=== PATIENT | female | born 1970 | race Caucasian/White ===

== ENCOUNTER 2016-12-14 03:24 | Emergency (ER) | payer OTHER ==
[~2016-12-14] VITALS: Ht 160 cm; Wt 59.5 kg
[~2016-12-14 03:24] MED LIST: OMEP20CA16 PO
[2016-12-14 03:35] VITALS: Ht 160 cm; Wt 59.5 kg
[2016-12-14] MEDS ORDERED: ONDANSETRON 4 MG INJ IV STA (04:32)
[2016-12-14] MEDS ORDERED: SOD CHLORIDE 0.9% 1,000 ML IV STA (04:32)
[2016-12-14] MEDS ORDERED: morphine 4 MG/ML VIAL IV STA (04:32)
[2016-12-14 05:37] LABS: ADD UMIC YES; URINE BILIRUBIN (Dip) NEGATIVE (NEGATIVE); URINE BLOOD (Dip) 3+ (NEGATIVE); URINE COLOR YELLOW (YELLOW); URINE GLUCOSE (Dip) NEGATIVE (NEGATIVE); URINE KETONES (Dip) NEGATIVE (NEGATIVE); URINE LEUKOCYTE ESTERASE (Dip) NEGATIVE (NEGATIVE); URINE NITRITE (Dip) NEGATIVE (NEGATIVE); URINE TOTAL PROTEIN (Dip) NEGATIVE (NEGATIVE); URINE UROBILINOGEN (Dip) 0.2 E.U./dL (0.1-1.0)
[2016-12-14 05:50] LABS: BASOPHILS % 0.3 % (0.0-2.0); EOSINOPHILS % 0.5 % (0.0-7.0); HEMATOCRIT 44.8 % (37.0-47.0); LYMPHOCYTES # 1.5 10^3/ul (0.8-2.9); LYMPHOCYTES % 20.4 % (15.0-51.0); MEAN CORPUSCULAR HEMOGLOBIN 30.2 pg (29.0-33.0); MEAN CORPUSCULAR HGB CONC 33.5 g/dl (32.0-37.0); MEAN CORPUSCULAR VOLUME 90.3 fl (82.0-101.0); MEAN PLATELET VOLUME 10.4 fl (7.4-10.4); MONOCYTE # 0.5 10^3/ul (0.3-0.9); MONOCYTES % 6.7 % (0.0-11.0); NEUTROPHIL # 5.2 10^3/ul (1.6-7.5); NEUTROPHILS % 72.1 % (39.0-77.0); PLATELET COUNT 171 10^3/UL (140-440); RED BLOOD COUNT 4.96 10^6/ul (4.20-5.40); RED CELL DISTRIBUTION WIDTH 14.5 % (11.5-14.5); UNCORRECTED WBC 7.2 10^3/ul (4.8-10.8); WHITE BLOOD COUNT 7.2 10^3/ul (4.8-10.8)
--- NOTE | 2016-12-14 05:51 | RADRPT ---
PROCEDURE: XR Abdomen. CLINICAL INDICATION: Abdominal pain. TECHNIQUE: 3 frontal views of the abdomen. COMPARISON: None. FINDINGS: The bowel gas pattern is unremarkable. Cholecystectomy clips are present. There is no bowel obstruct ion or free air. There is no organomegaly. There is no abnormal calcification. The osseous struct ures are unremarkable. IMPRESSION: Unremarkable bowel gas pattern. Status post cholecystectomy. .Robbi Wright MD, MD Date Time Electronically viewed and signed by .Robbi Wright MD, on 12/14/2016 05:51 .T/
[2016-12-14 05:53] LABS: BILIRUBIN,INDIRECT 0.3 mg/dl (0-1.1); BILIRUBIN,TOTAL 0.3 mg/dl (0.2-1.3); CREATININE 0.72 mg/dl (0.44-1.00); TOTAL PROTEIN 7.9 g/dl (6.1-8.1)
[2016-12-14 05:54] LABS: CALCIUM 9.1 mg/dl (8.4-10.2)
[2016-12-14 05:55] LABS: CONDITION 1
[2016-12-14 06:05] LABS: SQUAMOUS EPITHELIAL CELL,UR FEW
[2016-12-14 06:10] LABS: ALBUMIN 4.6 g/dl (3.3-4.9); POTASSIUM 3.5 mmol/L (3.5-5.1)
[2016-12-14 06:13] LABS: ALBUMIN/GLOBULIN RATIO 1.24
--- NOTE | 2016-12-14 06:25 | ERD ---
ER Documentation Chief Complaint Date/Time DATE: 12/14/16 TIME: 06:22 Chief Complaint diffuse abd pain x 2 days, diarrhea x 5 days HPI This 46-year-old female presents emergency room with 2 days of crampy abdominal pain after 5 days of diarrhea. Patient is also had nausea and has not been wanting to eat or drink for 2 days. She denies any fevers or chills. Diarrhea is copious and watery. ROS All systems reviewed and are negative except as per history of present illness. Medications Home Meds Reported Medications Omeprazole* (Omeprazole*) 20 Mg Capsule.dr, 20 MG PO DAILY, #30 CAP 08/22/16 Allergies Allergies: Coded Allergies: Penicillins (Verified Allergy, Severe, THROAT SWELLS UP, 09/10/16) nitrofurantoin (Verified Allergy, Severe, SWELLING TONGUE AND HANDS, ) PMhx/Soc History of Surgery: Yes (LAP CHOLEY, HYST, BLADDER SUSPENSION, BUTT IMPLANT) Anesthesia Reaction: Yes (N/V) Hx Neurological Disorder: No Hx Respiratory Disorders: No Hx Cardiac Disorders: No (BORDERLINE HTN, NO MEDS) Hx Psychiatric Problems: No Hx Miscellaneous Medical Probl: No Hx Alcohol Use: No Hx Substance Use: No Hx Tobacco Use: No Physical Exam Vitals Vital Signs Date Time Temp Pulse Resp B/P Pulse Ox O2 Delivery O2 Flow Rate FiO2 12/14/16 03:35 98.9 97 20 115/55 100 Physical Exam Const: [] No distress Head: Atraumatic Eyes: Normal Conjunctiva ENT: Normal External Ears, Nose and Mouth. Neck: Full range of motion..~ No meningismus. Resp: Clear to auscultation bilaterally Cardio: Regular rate and rhythm, no murmurs Abd: Soft, mild upper abdominal pain and left upper quadrant right upper quadrant epigastric area and mid abdomen without guarding or rebound, non distended. Normal bowel sounds Skin: No petechiae or rashes Back: No midline or flank tenderness Ext: No cyanosis, or edema Neur: Awake and alert and oriented 3, no focal deficits Psych: Normal Mood and Affect Result Diagram: 12/14/165 12/14/16444 Results 24 hrs Laboratory Tests Test 12/14/16 04:45 Alanine Aminotransferase (ALT/SGPT) 31IU/L Albumin Pending Albumin/Globulin Ratio Pending Alkaline Phosphatase 60IU/L Anion Gap Pending Aspartate Amino Transf (AST/SGOT) 32IU/L Basophils # 0.010^3/ul Basophils % 0.3% Blood Morphology Comment Blood Urea Nitrogen 16mg/dl Calcium Level 9.1mg/dl Carbon Dioxide Level 26mmol/L Chloride Level Pending Creatinine 0.72mg/dl Direct Bilirubin 0.00mg/dl Eosinophils # 0.010^3/ul Eosinophils % 0.5% Globulin Pending Glucose Level 95mg/dl Hematocrit 44.8% Hemoglobin 15.0g/dl Indirect Bilirubin 0.3mg/dl Lipase 89U/L Lymphocytes # 1.510^3/ul Lymphocytes % 20.4% Mean Corpuscular Hemoglobin 30.2pg Mean Corpuscular Hemoglobin Concent 33.5g/dl Mean Corpuscular Volume 90.3fl Mean Platelet Volume 10.4fl Monocytes # 0.510^3/ul Monocytes % 6.7% Neutrophils # 5.210^3/ul Neutrophils % 72.1% Nucleated Red Blood Cells # 0.010^3/ul Nucleated Red Blood Cells % 0.0/100WBC Platelet Count 93769^3/UL Potassium Level Pending Red Blood Count 4.9610^6/ul Red Cell Distribution Width 14.5% Sodium Level Pending Total Bilirubin 0.3mg/dl Total Protein 7.9g/dl Urine Bilirubin NEGATIVE Urine Calcium Oxalate Crystals MANY Urine Clarity CLEAR Urine Color YELLOW Urine Glucose NEGATIVE% Urine Hemoglobin 3+ Urine Ketones NEGATIVE Urine Leukocyte Esterase NEGATIVE Urine Microscopic RBC 10-25/HPF Urine Microscopic WBC 0-2/HPF Urine Nitrite NEGATIVE Urine Specific [place] 1.025 Urine Squamous Epithelial Cells FEW Urine Total Protein NEGATIVE Urine Urobilinogen 0.2 E.U./dL Urine Yeast FEW Urine pH 6.0 White Blood Count 7.210^3/ul Current Medications Medications (Trade) Dose Ordered Sig/Juarez Route PRN Reason Start Time Stop Time Status Last Admin Dose Admin Sodium Chloride (NS) 1,000 ml @ 1,000 mls/hr Q1H STAT IV 12/14/16 04:32 12/14/16 05:31 DC 12/14/16 04:49 Morphine Sulfate (morphine) 4 mg ONCE STAT IV 12/14/16 04:32 12/14/16 04:34 DC 12/14/16 04:49 Ondansetron HCl (Zofran Inj) 4 mg ONCE STAT IV 12/14/16 04:32 12/14/16 04:34 DC 12/14/16 04:49 Procedures/MDM Likely viral gastroenteritis. Patient is stable vital signs. She was hydrated with normal saline given morphine as well as Zofran. [place] much better in the emergency room was able to take by mouth. Discharging her with Lomotil, naproxen , few [place] for pain and Zofran ODT. No signs of kidney dysfunction from dehydration. Primary care follow-up in next 2-3 days and return precautions given. Also explained to her foods to avoid after viral illness of the intestines. Two-view abdominal x-ray interpretation: No acute process. I see no air-fluid level isn't getting obstruction, no free air, no abnormal masses, no fractures Departure Diagnosis: Primary Impression: Gastroenteritis Condition: Stable MOHITLUCIJANET DO Dec 14, 2016 06:25
[2016-12-14] MEDS ORDERED: ONDA4TAB14 PO (06:26)
[2016-12-14] MEDS ORDERED: NAPR-688 PO (06:27)
[2016-12-14] MEDS ORDERED: UDLOM GTB (06:27)
[2016-12-14] MEDS ORDERED: HYDR-906 PO (06:27)
[2016-12-14 06:40] VITALS: BP 110/68; PULSE 82; RESP 20; TEMP 98.6
== END 2016-12-14 06:40 | disposition home or self-care (01) ==
LOC: E/R 03:24
DX: K52.9 Noninfective gastroenteritis and colitis, unspecified (principal); R11.0 Nausea
CPT/HCPCS: 36415; 74010; 80053; 81001; 83690; 85025; 96374; 96375; J2270; J2405; J7030; Z7502; 81003

== ENCOUNTER 2017-07-13 06:05 | Emergency (ER) | payer OTHER ==
[~2017-07-13] VITALS: Ht 162.6 cm; Wt 64.0 kg
[~2017-07-13 06:05] MED LIST changes: +HYDR-906 PO; +NAPR-688 PO; +ONDA4TAB14 PO; +UDLOM GTB
[2017-07-13 06:07] VITALS: Ht 162.6 cm; Wt 64.0 kg
[2017-07-13] MEDS ORDERED: DIPHENHYDRAMINE 25 MG CAP PO ONE (07:00)
[2017-07-13 07:20] LABS: BASOPHILS % 0.6 % (0.0-2.0); EOSINOPHILS # 0.1 10^3/ul (0.0-0.5); HEMATOCRIT 39.7 % (37.0-47.0); HEMOGLOBIN 13.6 g/dl (12.0-16.0); LYMPHOCYTES % 28.9 % (15.0-51.0); MEAN CORPUSCULAR HEMOGLOBIN 30.4 pg (29.0-33.0); MEAN CORPUSCULAR HGB CONC 34.3 g/dl (32.0-37.0); MEAN CORPUSCULAR VOLUME 88.6 fl (82.0-101.0); MEAN PLATELET VOLUME 11.6 fl (7.4-10.4); MONOCYTE # 0.4 10^3/ul (0.3-0.9); NEUTROPHILS % 62.4 % (39.0-77.0); PLATELET COUNT 193 10^3/UL (140-415); RED BLOOD COUNT 4.48 10^6/ul (4.20-5.40); RED CELL DISTRIBUTION WIDTH 13.2 % (11.5-14.5); WHITE BLOOD COUNT 6.9 10^3/ul (4.8-10.8)
--- NOTE | 2017-07-13 07:21 | ERD ---
ER Documentation Chief Complaint Date/Time DATE: 07/13/17 TIME: 07:20 Chief Complaint diffuse abd pain w/ back pain, scaterred body rashes HPI 47-year-old female recently being treated for urinary tract infection with Keflex presents with epigastric abdominal pain going to her back, also rashes. She states she went to [facility] emergency department a few days ago and was prescribed Keflex which she has been taking. She reports a pruritic rash scattered on her chest and arms, and she took 1 dose of Atarax but it did not seem to help. Patient's pain is achy, going to the back, it has been approximately 2 days now. Patient states she still is having mild burning with urination. She denies fevers or chills, nausea, vomiting. She denies chest pain or shortness of breath. ROS All systems reviewed and are negative except as per history of present illness. Medications Home Meds Active Scripts Ranitidine Hcl* (Zantac*) 150 Mg Tablet, 150 MG PO BID Y for EPIGASTRIC PAIN, # 30 TAB Prov:TODD CHAPMAN PA-C 07/13/17 Nitrofurantoin Monohyd Macrocr* (Macrobid*) 100 Mg Capsr, 100 MG PO BID for 5 Days, CAP Prov:TODD CHAPMAN PA-C 07/13/17 Diphenoxylate Hcl-Atropine* (Lomotil*) 5 Ml Soln, 5 ML GTB Q6H Y for DIARRHEA, # 10 ML Prov:JANET RUEDA DO 12/14/16 Hydrocodone/Acetaminophen ([place] 5-325 Tablet) 1 Each Tablet, 1 EACH PO Q6, #10 TAB Prov:JANET RUEDA DO 12/14/16 Naproxen* (Naproxen*) 500 Mg Tablet, 500 MG PO BID Y for PAIN, #20 TAB Prov:JANET RUEDA DO 12/14/16 Ondansetron (Ondansetron Odt) 4 Mg Tab.rapdis, 4 MG PO Q6H Y for NAUSEA AND/OR VOMITING, #10 TAB Prov:JANET RUEDA DO 12/14/16 Reported Medications Omeprazole* (Omeprazole*) 20 Mg Capsule.dr, 20 MG PO DAILY, #30 CAP 08/22/16 Allergies Allergies: Coded Allergies: Penicillins (Verified Allergy, Severe, THROAT SWELLS UP, 09/10/16) PMhx/Soc History of Surgery: Yes (LAP CHOLEY, HYST, BLADDER SUSPENSION, BUTT IMPLANT) Anesthesia Reaction: Yes (N/V) Hx Neurological Disorder: No Hx Respiratory Disorders: No Hx Cardiac Disorders: No (BORDERLINE HTN, NO MEDS) Hx Psychiatric Problems: No Hx Miscellaneous Medical Probl: No Hx Alcohol Use: No Hx Substance Use: No Hx Tobacco Use: No Smoking Status: Never smoker Physical Exam Vitals Vital Signs Date Time Temp Pulse Resp B/P Pulse Ox O2 Delivery O2 Flow Rate FiO2 07/13/17 06:07 97.5 82 20 125/67 98 Physical Exam General: Well-developed, well-nourished. The patient appears in no acute distress. HEENT: Head is normocephalic, atraumatic. No scleral icterus. Pupils are equal , round, and reactive. Oral mucous membranes are moist. No pharyngeal erythema. Neck: Supple. Nontender. Lungs: Clear to auscultation. Normal air movement. Heart: Regular rate and rhythm. S1 and S2 are normal. No murmurs, gallops, or rubs. Abdomen: Soft, epigastric tenderness with palpation, nondistended. Bowel sounds are normoactive. Negative Osullivan sign, no McBurney's tenderness. Extremities: No clubbing or cyanosis. Normal pulses. Moving extremities x 4. No weakness. Neurologic: Alert and oriented 3. No focal deficits. Skin: Macular rash on the chest and upper extremities. Result Diagram: 07/13/17 0707/13/17 0705 Results 24 hrs Laboratory Tests Test 07/13/17 07:05 White Blood Count 6.910^3/ul Red Blood Count 4.4810^6/ul Hemoglobin 13.6g/dl Hematocrit 39.7% Mean Corpuscular Volume 88.6fl Mean Corpuscular Hemoglobin 30.4pg Mean Corpuscular Hemoglobin Concent 34.3g/dl Red Cell Distribution Width 13.2% Platelet Count 95811^3/UL Mean Platelet Volume 11.6fl Neutrophils % 62.4% Lymphocytes % 28.9% Monocytes % 6.0% Eosinophils % 2.0% Basophils % 0.6% Nucleated Red Blood Cells % 0.0/100WBC Neutrophils # (Manual) 4.310^3/ul Lymphocytes # 2.010^3/ul Monocytes # 0.410^3/ul Eosinophils # 0.110^3/ul Basophils # 0.010^3/ul Nucleated Red Blood Cells # 0.010^3/ul Urine Color YELLOW Urine Clarity CLEAR Urine pH 5.0 Urine Specific [place] 1.021 Urine Ketones NEGATIVEmg/dL Urine Nitrite NEGATIVEmg/dL Urine Bilirubin NEGATIVEmg/dL Urine Urobilinogen NEGATIVEmg/dL Urine Leukocyte Esterase NEGATIVELeu/ul Urine Microscopic RBC 5/HPF Urine Microscopic WBC 1/HPF Urine Squamous Epithelial Cells FEW/HPF Urine Mucus FEW/HPF Urine Hemoglobin 2+mg/dL Urine Glucose NEGATIVEmg/dL Urine Total Protein NEGATIVEmg/dl Sodium Level 142mmol/L Potassium Level 3.8mmol/L Chloride Level 109mmol/L Carbon Dioxide Level 22mmol/L Anion Gap 15 Blood Urea Nitrogen 14mg/dl Creatinine 0.63mg/dl Glucose Level 107mg/dl Calcium Level 9.0mg/dl Total Bilirubin 0.4mg/dl Direct Bilirubin 0.00mg/dl Indirect Bilirubin 0.4mg/dl Aspartate Amino Transf (AST/SGOT) 21IU/L Alanine Aminotransferase (ALT/SGPT) 24IU/L Alkaline Phosphatase 56IU/L Total Protein 8.1g/dl Albumin 4.4g/dl Globulin 3.70g/dl Albumin/Globulin Ratio 1.18 Lipase 93U/L Current Medications Medications (Trade) Dose Ordered Sig/[place] Route PRN Reason Start Time Stop Time Status Last Admin Dose Admin Diphenhydramine HCl (Benadryl) 25 mg ONCE ONCE PO 07/13/17 07:00 07/13/17 07:01 DC 07/13/17 07:30 Miscellaneous Medication (Gi Cocktail (2)) 40 ml ONCE ONCE PO 07/13/17 08:00 07/13/17 08:01 DC 07/13/17 08:27 Procedures/MDM 47 year old female comes in with epigastric pain and a pruritic rash that began today. She was recently seen at [facility] and was diagnosed and treated with Keflex for a urinary tract infection. Patient states she has never had a reaction to macrobid, has had a rash to penicillin in the past so she will be asked to stop the keflex and start macrobid since she is still complaining of painful urination. Patient's labs are unremarkable, she responded well to the GI cocktail at this time. She will be treated for gastritis versus gerd, no evidence of pancreatitis. Departure Diagnosis: Primary Impression: Abdominal pain Additional Impression: Dermatitis Condition: Good TODD CHAPMAN PA-C Jul 13, 2017 07:21
[2017-07-13 07:31] LABS: ADD UMIC YES; UR ASCORBIC ACID 20 mg/dL (NEGATIVE); UR BILIRUBIN (Dip) NEGATIVE (NEGATIVE); UR BLOOD (Dip) 2+ mg/dL (NEGATIVE); UR CLARITY CLEAR (CLEAR); UR COLOR YELLOW (YELLOW); UR GLUCOSE (Dip) NEGATIVE (NEGATIVE); UR KETONES (Dip) NEGATIVE (NEGATIVE); UR LEUKOCYTE ESTERASE (Dip) NEGATIVE Leu/ul (NEGATIVE); UR MUCUS FEW /HPF (NONE SEEN); UR NITRITE (Dip) NEGATIVE (NEGATIVE); UR RBC 5 /HPF (0-5); UR SPECIFIC GRAVITY (Dip) 1.021 (1.003-1.030); UR SQUAMOUS EPITHELIAL CELL FEW /HPF (FEW); UR TOTAL PROTEIN (Dip) NEGATIVE (NEGATIVE); UR UROBILINOGEN (Dip) NEGATIVE (NEGATIVE)
[2017-07-13 07:41] LABS: ALBUMIN 4.4 g/dl (3.3-4.9); ALBUMIN/GLOBULIN RATIO 1.18; BILIRUBIN,INDIRECT 0.4 mg/dl (0-1.1); BILIRUBIN,TOTAL 0.4 mg/dl (0.2-1.3); CREATININE 0.63 mg/dl (0.44-1.00); POTASSIUM 3.8 mmol/L (3.5-5.1); TOTAL PROTEIN 8.1 g/dl (6.1-8.1)
[2017-07-13] MEDS ORDERED: LIDOCAINE/MYLANTA 40 ML BTL PO ONE (08:00)
[2017-07-13] MEDS ORDERED: RANI150T9 PO (08:43)
[2017-07-13] MEDS ORDERED: NITR-58 PO (08:43)
== END 2017-07-13 08:48 | disposition home or self-care (01) ==
LOC: FTE 06:05
DX: R10.84 Generalized abdominal pain (principal); L30.9 Dermatitis, unspecified
CPT/HCPCS: 80053; 81001; 83690; 85025; Z7502; Z7610; 99283